=== PATIENT | male | born 1940 | race Asian ===

== ENCOUNTER 2016-10-26 09:42 | Day surgery (SDC) | payer BC ==
--- NOTE | ~2016-10-26 | EGD ---
EGD REPORT [facility] [address] [address] NAME: MARIA ISABEL TURK : 36 STATUS : [place] [facility] [place] PAT#: [id number] AGE: 76 ADM/REG DATE : 10/26/16 MR#: [id number] REPORT SERV DATE: 10/26/16 DICTATED BY: MISHA UGARTE DATE: 10/26/16 REPORT STATUS : Draft TRANSCRIBED BY: [employer] DATE: 10/26/16 [facility] Center Patient Name: Maria Isabel Turk Date of : 1940 Attending MD: MISHA UGARTE MD Procedure Date No Time: 10/26/2016 Procedure: Colonoscopy Indications: Screening for colorectal malignant neoplasm Referring MD: Danilo Lee Medicines: as per anesthesia Complications: No immediate complications. Procedure: Pre-Anesthesia Assessment: - ASA Grade Assessment: III - A patient with severe systemic disease. After I obtained informed consent, the scope was passed under direct vision. Throughout the procedure, the patient's blood pressure, pulse, and oxygen saturations were monitored continuously. The PCF [id number] was introduced through the anus and advanced to the cecum, identified by appendiceal orifice and ileocecal valve. The colonoscopy was performed without difficulty. The patient tolerated the procedure. The quality of the bowel preparation was adequate to identify polyps. Findings: The perianal and digital rectal examinations were normal. Internal hemorrhoids were found during endoscopy and were mild. Impression: - Internal hemorrhoids. Recommendation: - Continue present medications. Procedure Code(s): --- Professional --- 00926, Colonoscopy, flexible, proximal to splenic flexure; diagnostic, with or without collection of specimen(s) by brushing or washing, with or without colon decompression (separate procedure) Diagnosis Code(s): --- Professional --- K64.8, Other hemorrhoids Z12.11, Encounter for screening for malignant neoplasm of colon CPT copyright 2013 [employer]. All rights reserved. EGD REPORT [facility] [address] [facility] [place] [place] [address] NAME: MARIA ISABEL TURK : 36 STATUS : [place] [facility] [place] PAT#: [id number] AGE: 76 ADM/REG DATE : 10/26/16 MR#: [id number] REPORT SERV DATE: 10/26/16 DICTATED BY: MISHA UGARTE. DATE: 10/26/16 REPORT STATUS : Draft TRANSCRIBED BY: [employer] DATE: 10/26/16 The codes documented in this report are preliminary and upon manager data review may be revised to meet current compliance requirements. MISHA UGARTE MD 10/26/2016 12:04 PM This report has been signed electronically. Number of Addenda: 0 Note Initiated On: 10/26/2016 11:40 AM Scope Withdrawal Time 0 hours 7 minutes 54 seconds [address] [facility] [place] [address]
[~2016-10-26 09:42] MED LIST: COREG12 PO; FISH-EPA1000 MG PO; GLUCOV5 PO; HALF81 PO; JANUMET1 TA1 PO; LISINOPRIL40 MG PO; NORV5 PO; SINGULAIR1 PO; STARLIX60 PO; ZOCOR20 PO; ZYRTEC ALLGY10 MG PO; [UNRECOGNIZED DRUG - OTHER] PO
== END 2016-10-26 23:59 | disposition home or self-care (01) ==
LOC: DMU 09:42
PROVIDERS: Internal Medicine Gastroenterology
PROC: 0DJD8ZZ Inspection of Lower Intestinal Tract, Via Natural or Artificial Opening Endoscopic (ICD-10-PCS; 2016-10-26)
PROC: 0DJD8ZZ Inspection of Lower Intestinal Tract, Via Natural or Artificial Opening Endoscopic (ICD-10-PCS; principal; 2016-10-26 11:00)
DX: Z12.11 Encounter for screening for malignant neoplasm of colon (principal); K64.8 Other hemorrhoids; I10 Essential (primary) hypertension; E11.9 Type 2 diabetes mellitus without complications; I73.9 Peripheral vascular disease, unspecified; H40.9 Unspecified glaucoma; E78.00 Pure hypercholesterolemia, unspecified; G47.33 Obstructive sleep apnea (adult) (pediatric); Z98.41 Cataract extraction status, right eye; Z98.42 Cataract extraction status, left eye; Z96.1 Presence of intraocular lens; Z98.890 Other specified postprocedural states; Z79.899 Other long term (current) drug therapy; Z79.82 Long term (current) use of aspirin; Z87.891 Personal history of nicotine dependence
CPT/HCPCS: 82962